=== PATIENT | female | born 1980 | race Caucasian/White ===

== ENCOUNTER 2016-11-02 08:30 | Outpatient (RCR) | payer BC | END 2016-11-27 | disposition home or self-care (01) | LOC: PTY 08:30 | DX: M62.838 Other muscle spasm (principal) ==

== ENCOUNTER 2016-12-03 08:15 | Outpatient (RCR) | payer BC | END 2016-12-28 | disposition home or self-care (01) | LOC: PTY 08:15 | DX: M62.838 Other muscle spasm (principal) ==

== ENCOUNTER 2018-03-28 09:00 | Outpatient (RCR) | payer BC | END 2018-03-29 | disposition home or self-care (01) | LOC: PTY 09:00 | DX: S93.402S Sprain of unspecified ligament of left ankle, sequela (principal) ==

== ENCOUNTER 2018-03-31 08:15 | Outpatient (RCR) | payer BC | END 2018-04-29 | disposition home or self-care (01) | LOC: PTY 08:15 | DX: S93.402S Sprain of unspecified ligament of left ankle, sequela (principal) ==

== ENCOUNTER 2018-05-14 08:12 | Outpatient (RCR) | payer BC | END 2018-05-30 | disposition home or self-care (01) | LOC: PTY 08:12 | DX: S93.402S Sprain of unspecified ligament of left ankle, sequela (principal) ==